=== PATIENT | male | born 1970 | race Caucasian/White ===

== ENCOUNTER 2019-02-06 22:48 | Emergency (ER) | payer MEDICAID, OTHER ==
[~2019-02-06] VITALS: Ht 182.9 cm; Wt 97.5 kg
[2019-02-06] MEDS ORDERED: QUET300T2 PO (22:58)
[2019-02-06] MEDS ORDERED: GABA-532 PO (22:58)
[2019-02-06] MEDS ORDERED: BUPR150T5 PO (22:58)
[2019-02-06] MEDS ORDERED: HYDR-3326 PO (22:59)
[2019-02-06] MEDS ORDERED: CEPH-570 PO (22:59)
--- NOTE | 2019-02-06 23:04 | NUR ---
PATIENT WALKED INTO ER WITH SI, FEELS LIKE JUMPING OF A BRIDGE
--- NOTE | 2019-02-06 23:10 | NUR ---
PATIENT SEEN THIS MORING AT [facility] FOR SAME PROBLEM.
--- NOTE | 2019-02-06 23:19 | NUR ---
SHERYL CARVALHO CALLED, ETA 60 MIN.
--- NOTE | 2019-02-06 23:54 | NUR ---
SHERYL CARVALHO AT BEDSIDE TALKING WITH PATIENT.
--- NOTE | 2019-02-07 01:20 | NUR ---
PATIENT ASLEEP, WILL MONITOR.
--- NOTE | 2019-02-07 02:18 | NUR ---
SPOKE WITH LIBIA FROM [facility], SHE STATED THAT PATIENT'S CHARGED WAS FAXED OVER TO CHARGE NURSE AND IS UNDER REVIEW AT THIS TIME. OUR CALLBACK NUMBER LEFT WITH LIBIA.
--- NOTE | 2019-02-07 03:23 | NUR ---
RECEIVED A CALL FROM ROJ[facility] PICKENS REQUESTING LAB WORK AND MEDICAL CLEARANCE, PAPERWORK FAXED TO
--- NOTE | 2019-02-07 04:05 | NUR ---
RECEIVED CALL FROM [facility], PATIENT WILL BE ADMITTED TO UNDER DR. ANSARI AND DR THOMPSON, PATIENT WILL BE TRANSFERRED AFTER 7AM SINCE THERE IS NO BED AVAILABLE AT THIS TIME. REPORT CALLED TO .
--- NOTE | 2019-02-07 04:25 | NUR ---
SPOKE WITH BLANCA FROM [facility], REPORT GIVEN. PATIENT WILL BE TRANSFERRED AFTER 0700 [place] [address] [place] [address] ANSARI/DR. THOMPSON
--- NOTE | 2019-02-07 04:29 | NUR ---
SPOKE WITH ANALI FROM [facility], PATIENT HAS [employer] INSURANCE. I WAS PROVIDED WITH A NEW NUMER TO CALL
--- NOTE | 2019-02-07 04:36 | NUR ---
SPOKE WITH [facility] , [facility]. PATIENT WILL BE TRANSPORTED AFTER 0700 TO [facility], ACCEPTING MD ANSARI. NO ROOM NUMBER AVAILABLE AT THIS TIME FROM [facility]. TRIP # [id number]
--- NOTE | 2019-02-07 07:15 | NUR ---
BSR received from Bob Melendez as reported pt. will be bead picker any time after 0700 and be transfer to [facility] and be admitted under Dr. Browne. Telephone report given to holly Timmons. Will continue with care plan.
--- NOTE | 2019-02-07 07:28 | NUR ---
Vitals: HR of 76, 102/60, 98% sat on RA. 97.7 oral temp. no c/of pain or any other discomfort.
--- NOTE | 2019-02-07 07:55 | NUR ---
A call to [facility] for a follow up, and as informed by Mr. Lomax of 15-30 minutes, from now.
--- NOTE | 2019-02-07 08:00 | NUR ---
Patient provided with breakfast and ate 75% of his tray.
--- NOTE | 2019-02-07 08:40 | NUR ---
Ambulance services transport in to transfer patient, out. Patient no where to be found bathroom check. smoking asigned area also check, charge R.N. notified.
--- NOTE | 2019-02-07 08:54 | NUR ---
After waiting for patient to get back with no success, ambulance personnel left unit. Patient officially noted to [facility]. aware charge Radha godoy.
--- NOTE | 2019-02-07 08:55 | NUR ---
[facility] called to be notified.
== END 2019-02-07 08:55 | disposition left against medical advice (07) ==
LOC: ER 22:50
DX: R45.851 Suicidal ideations (principal); F32.9 Major depressive disorder, single episode, unspecified; F12.10 Cannabis abuse, uncomplicated; Z59.0 Homelessness; Z79.899 Other long term (current) drug therapy
CPT/HCPCS: A4663; J7030

== ENCOUNTER 2019-04-09 22:13 | Emergency (ER) | payer OTHER ==
[~2019-04-09] VITALS: Ht 182.9 cm; Wt 95.3 kg
[~2019-04-09 22:13] MED LIST: BUPR150T5 PO; CEPH-570 PO; GABA-532 PO; HYDR-3326 PO; QUET300T2 PO
[2019-04-09] MEDS ORDERED: RISP1TAB27 PO (22:19)
--- NOTE | 2019-04-09 22:20 | NUR ---
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
--- NOTE | 2019-04-09 22:21 | NUR ---
SUICIDE PREC IN PLACE 1ON1 SITTER W/ HOURLY ROUNDS CHANGED INTO PT GOWN, PT COMPLIANT
[2019-04-09] MEDS ORDERED: LORAZEPAM 1 MG TABLET ONE (22:28)
--- NOTE | 2019-04-09 22:28 | NUR ---
PT FOR VOLUNTARY ADMISSION TO [facility] ABLE TO TALK WITH INTAKE (WALKER) AT [phone] STATES: OPENING AT [facility] PLEASE FAX FACE SHEET WITH MEDICAL CLEARANCE LABS (UA AND CBC) TO [phone] AFTER THAT, WAIT FOR CALL BACK FOR ROOM
[2019-04-09] MEDS: LORAZEPAM 0.5 MG TABLET PO ONE (22:29)
--- NOTE | 2019-04-09 22:30 | NUR ---
PT IS COMPLIANT CALM AND CONFORTABLE PT BELONGINGS ACCOUNTED FOR SECURITY PROTOCOL INITIATED (WARNER)
[2019-04-09 22:38] LABS: *BILIRUBIN,URIN NEGATIVE (NEGATIVE); *BLOOD, URINE NEGATIVE (NEGATIVE); *CLARITY,URINE CLEAR (CLEAR); *COLOR,URINE YELLOW (YELLOW); *KETONES,URINE NEGATIVE (NEGATIVE); *UROBILINOGEN,URINE 0.2 E.U./dl (NORMAL); LEUKOCYTE ESTERASE ,URINE NEGATIVE (NEGATIVE); NITRITE, URINE NEGATIVE (NEGATIVE); PH,URINE 6.5 (5.0-8.0); UGLUCOSE NEGATIVE (NEGATIVE)
[2019-04-09 22:49] LABS: ALANINE AMINOTRANSFERASE 24 U/L (16-63); ALKALINE PHOSPHATASE 80 U/L (50-136); ASPARTATE AMINOTRANSFERASE 11 U/L (15-37); BILIRUBIN,DIRECT < 0.1 mg/dL (0.0-0.2); BILIRUBIN,TOTAL 0.1 mg/dL (0.2-1.0); CARBON DIOXIDE 33 mmol/L (21-32); CHLORIDE 110 mmol/L (98-107); GLUCOSE 74 mg/dL (74-106); POTASSIUM 4.4 mmol/L (3.5-5.1); TOTAL PROTEIN, SERUM 6.4 g/dL (6.4-8.2); UREA NITROGEN, BLOOD 15 mg/dL (7-18)
[2019-04-09 22:50] LABS: BASOPHILS # (AUTO) 0.1 K/uL (0.0-8.0); BASOPHILS % (AUTO) 1.1 % (0.0-2.0); EOSINOPHILS # (AUTO) 0.5 K/uL (0.0-0.7); EOSINOPHILS % (AUTO) 8.5 % (0.0-7.0); HEMATOCRIT 39.5 % (36.7-47.1); HEMOGLOBIN 13.1 g/dL (12.5-16.3); LYMPHOCYTES % (AUTO) 31.8 % (20.5-51.5); MEAN CORPUSCULAR HEMOGLOBIN 31.8 uug (23.8-33.4); MEAN CORPUSCULAR HGB CONC 33 g/dL (32.5-36.3); MEAN CORPUSCULAR VOLUME 96.3 fL (73.0-96.2); MONOCYTES # (AUTO) 0.6 K/uL (2.0-10.0); MONOCYTES % (AUTO) 9.4 % (0.0-11.0); NEUTROPHILS # (AUTO) 3.1 K/uL (1.8-8.9); NEUTROPHILS % (AUTO) 49.2 % (38.5-71.5); PLATELET COUNT (AUTO) 307 K/uL (152-348); RED BLOOD CELL COUNT(AUTO) 4.11 MIL/uL (4.06-5.63); WHITE BLOOD COUNT (AUTO) 6.2 K/uL (3.6-10.2)
[2019-04-09 22:53] LABS: ACETAMINOPHEN < 2.0 ug/mL (10-30)
[2019-04-09 22:54] LABS: ETHANOL < 3 MG/DL (0-0)
[2019-04-09 22:56] LABS: *AMPHETAMINE, URINE NEGATIVE (NEGATIVE); *BARBITURATE, URINE NEGATIVE (NEGATIVE); *CANNABINOID, URINE POSITIVE (NEGATIVE); *COCCAINE, URINE NEGATIVE (NEGATIVE); *OPIATE, URINE NEGATIVE (NEGATIVE); *PHENCYCLIDINE SCREEN,URINE NEGATIVE (NEGATIVE)
--- NOTE | 2019-04-09 23:32 | NUR ---
INTAKE FAXED AND CONFIRMED WALKER(SOCAL INTAKE) WILL SEND CLINICALS TO NURSE WELD LAY OUT WORKER (JOÃO) WAITING CALL BACK
--- NOTE | 2019-04-10 00:13 | NUR ---
CALL BACK FROM INTAKE(WALKER) STATES: [facility] CANNOT ACCEPT PATIENT DUE TO INSURANCE (REGMS) ERMD AWARE CALLED [facility] HAULING CONTRACTOR WASTE DISPOSAL LEAKAGE TESTER ([phone]) FOR PLACEMENT FOR VOLUNTARY ADMISSION DX SI WITH PLAN
--- NOTE | 2019-04-10 00:29 | NUR ---
FAXED CLINICALS TO [facility] LEAN MANUFACTURING ENGINEER (STRIP CLEANER) F : [phone] CALL BACK [phone] WAITING CALL BACK
--- NOTE | 2019-04-10 00:33 | NUR ---
PT ASLEEP, NAD
--- NOTE | 2019-04-10 00:50 | NUR ---
CALL BACK FR CABLE PULLER(JENIFFER) STATES: PT CASE WILL BE SHIFTED TO [facility] FOR [facility]ACEMENT NO AUTHORIZATION NUMBER REQUIRED CALLED [facility] FLYING TEACHER CRISIS TEAM: ANGEL LEFT VOICE MESSAGE PT ASLEEP, NAD SIDERAILSX2 UP BED AT LOWEST POSITION KEPT WARM DRY AND COMFORTABLE
--- NOTE | 2019-04-10 01:20 | NUR ---
CALL BACK FROM ANGEL (WATERPROOF COATING MACHINE TENDER CRISIS TEAM) STATES SHE CALLED BACK [facility] AND CONFIRMED PT CANNOT BE ADMITTED THERE STATES WAIT FOR PLACEMENT IN THE MORNING PER HAZ TECH
--- NOTE | 2019-04-10 02:30 | NUR ---
PT NAD, ASLEEP BUT EASILY ROUSED
--- NOTE | 2019-04-10 03:57 | NUR ---
PT ASH TO TOLERATE 60ML OF WATER AND 2CUPS OF JUICE PT WENT BACK TO SLEEP NAD
--- NOTE | 2019-04-10 07:18 | NUR ---
hand off and sbar given to incoming day shift rn
--- NOTE | 2019-04-10 08:00 | NUR ---
TALKED TO NATALI LEVY OVER THE PHONE.
--- NOTE | 2019-04-10 08:30 | NUR ---
HOSPITAL BREAKFAST PROVIDED PER PT REQUEST.
[2019-04-10] MEDS ORDERED: OXYCODONE/APAP 5-325 MG TABLET ONE (09:34)
[2019-04-10] MEDS ORDERED: ONDANSETRON ODT 4 MG TAB.RAPDIS ONE (09:34)
--- NOTE | 2019-04-10 10:22 | NUR ---
AIME LEVY AT BEDSIDE.
--- NOTE | 2019-04-10 10:45 | NUR ---
YAQUELIN MANAGER WASTEWATER AT BEDSIDE.
--- NOTE | 2019-04-10 10:50 | NUR ---
Patient given written and verbal discharge instructions. Patient verbalizes understanding of instructions. Patient is ambulatory with steady gait. Patient given list of available shelters in surrounding area.
[2019-04-10 10:52] VITALS: BP 121/59
--- NOTE | 2019-04-10 10:52 | NUR ---
PT WAS HAPPY AND VERY APPRECIATIVE OF THE CARE RECIEVED.
--- NOTE | 2019-04-10 11:30 | NUR ---
SW met with patient for discharge planning. Patient was receptive to meeting with this SW. Community resources discussed, and patient expressed agreement with receiving the homeless resource packet from this SW, however expressed choosing to be discharged to self and to his previous living arrangements at this time. SW provided patient with a homeless resource packet which included the following resources: a list of year-round homeless shelters, [facility], [address] [place] [address], ; [facility], [address] [place] [address], ; [facility], [address] [place] [address], [phone]; and [facility], [address] [place] [address], ; the [facility] homeless directory which provides a list of places that individuals can go to throughout the week for hot meals, sack lunches, food pantries, and showers; a list of mental health clinics: [facility] [address] [place] [address], ; [facility] [address] [place] [address], ; [facility] [address] [place] [address], ; medical clinics: [facility] [address] [facility] [address], [place]. [place], ; [facility] [address] [facility], [address] [place] [address]; [facility] [address] [facility] [address], ; and substance abuse programs: [facility] Substance Abuse Self-helpline ; [facility] ; [facility] ; [facility] ; [facility] ; [facility] [phone]; [facility] [phone]. SW also provided patient with information on locations of pharmacies. Patient declined transportation support offered by this SW, and stated that he has his own bus pass and utilizes the bus regularly. Nursing provided food. Patient's clothing were clean and warm, and patient expressed not needing any additional clothes. Patient expressed being thankful for the resources and care provided. No further SS interventions needed at this time. Patient discharged in stable condition.
== END 2019-04-10 10:53 | disposition home or self-care (01) ==
LOC: ER 22:15
DX: R45.851 Suicidal ideations (principal); F32.9 Major depressive disorder, single episode, unspecified; F12.10 Cannabis abuse, uncomplicated; Z59.0 Homelessness; Z79.899 Other long term (current) drug therapy
CPT/HCPCS: 36415; 80048; 80076; 80307; 81001; 85025; 99284; G0480 ×2; G0481; A4663; Q0162